=== PATIENT | male | born 1990 | race Caucasian/White ===

== ENCOUNTER 2017-04-07 18:11 | Inpatient (IN) | payer OTHER ==
[2017-04-07] MEDS ORDERED: ONDANSETRON 4 MG/2 ML VIAL IVP STA ×2 (18:49→20:34)
[2017-04-07] MEDS ORDERED: SODIUM CHLORIDE 0.9% 1,000 ML IV STA ×2 (18:49→20:34)
[2017-04-07] MEDS ORDERED: SODIUM CHLORIDE 0.9% 500 ML IV STA ×2 (18:49→20:34)
[2017-04-07] MEDS ORDERED: KETOROLAC 30 MG/ML 1 ML VIAL IVP STA (18:49)
[2017-04-07] MEDS ORDERED: ACETAMINOPHEN TAB 325 MG TAB PO STA (18:51)
--- NOTE | 2017-04-07 18:54 | ED ---
Nausea/Vomiting/Diarrhea HPI - General Chief complaint: Nausea/Vomiting/Diarrhea Stated complaint: Vomiting Time Seen by Provider: 04/07/17 18:46 Source: patient Mode of arrival: ambulatory Limitations: no limitations - History of Present Illness Initial comments: 26-year-old male patient presented to the emergency department today with complaints of generalized bodyaches and vomiting. The patient states that symptoms started last evening around 8 PM. States he has vomited multiple times throughout the day today. He denies any hematemesis. Denies any diarrhea , hematochezia, or melena. He denies any known fever or chills however is febrile during triage. He denies any upper respiratory symptoms. Denies any abdominal pain. Patient denies any recent rash, shortness breath, chest pain, back pain, numbness, tingling, dizziness, weakness, hematuria, dysuria, urinary urgency, urinary frequency, headache, visual changes, or any other complaints. Denies any drug or alcohol use. - Related Data Previous Rx's Medication Instructions Recorded Ibuprofen [Motrin] 800 mg PO Q4-6H #30 tab 03/18/17 traMADol HCL [Ultram] 50 mg PO Q6HR #7 tab 03/18/17 Allergies Allergy/AdvReac Type Severity Reaction Status Date / Time No Known Allergies Allergy Verified 04/07/17 18:52 Review of Systems ROS Statement: Those systems with pertinent positive or pertinent negative responses have been documented in the HPI. ROS Other: All systems not noted in ROS Statement are negative. Past Medical History Past Medical History: Seizure Disorder Additional Past Medical History / Comment(s): RT/LT ANT SUPERIOR ILIAC WOUNDS, AND" REDNESS/BUMPS TO ABD". BRONCHITIS, CYSTS ON TESTICAL History of Any Multi-Drug Resistant Organisms: MRSA Date of last positivie culture/infection: 07/29/15 MDRO Source:: Abdomen Past Surgical History: No Surgical Hx Reported Additional Past Surgical History / Comment(s): I&d abd abcess Past Anesthesia/Blood Transfusion Reactions: No Reported Reaction Past Psychological History: ADD/ADHD Smoking Status: Current every day smoker Past Alcohol Use History: Occasional Past Drug Use History: Marijuana - Past Family History Father History Unknown: Yes Mother History Unknown: Yes General Exam Limitations: no limitations General appearance: alert, in no apparent distress, other (Physical well- developed, well-nourished adult male patient in no acute distress. Vital signs upon presentation are temperature 100.4F, pulse 93, respirations 20, blood pressure 135/90, pulse ox 99% on room air.) Eye exam: Present: normal appearance, PERRL, EOMI. Absent: scleral icterus, conjunctival injection, periorbital swelling ENT exam: Present: normal exam, normal oropharynx, mucous membranes moist Neck exam: Present: normal inspection. Absent: tenderness, meningismus, lymphadenopathy Respiratory exam: Present: normal lung sounds bilaterally. Absent: respiratory distress, wheezes, rales, rhonchi, stridor Cardiovascular Exam: Present: regular rate, normal rhythm, normal heart sounds. Absent: systolic murmur, diastolic murmur, rubs, gallop, clicks GI/Abdominal exam: Present: soft, normal bowel sounds. Absent: distended, tenderness, guarding, rebound, rigid Neurological exam: Present: alert, oriented X3, CN II-XII intact Psychiatric exam: Present: normal affect, normal mood Skin exam: Present: warm, dry, intact, normal color. Absent: rash Course Vital Signs 04/07/17 18:12 Temperature 100.4 F H Pulse Rate 93 Respiratory 20 Rate Blood Pressure 135/90 O2 Sat by Pulse 99 Oximetry Medical Decision Making - Medical Decision Making 26-year-old male patient presents to the emergency department for a 1 day history of vomiting and abdominal discomfort. Physical examination is unremarkable. Abdomen is nontender. Labs are were reviewed and did show a sodium of 135, bilirubin of 4.0, AST of 4818, ALT of 4021, alk phos of 133. Urine was dark brown in color, results showed 1+ urine protein, 1+ bilirubin, rare amorphous sediment, and rare urine mucus. Will be admitted to the hospital for acute hepatitis. Acute hepatitis panel, PT INR, PTT, and a urine drug screen have been added. We will obtain ultrasound. He'll be admitted to Dr. Moncada's service. IV fluids and nausea medication has been provided. Patient has been notified of results and agrees with this plan. - Lab Data Result diagrams: 04/07/17 19:30 04/07/17 19:30 Lab Results 04/07/17 04/07/17 04/07/17 Range/Units 19:30 19:30 19:30 WBC 4.1 (3.8-10.6) k/uL RBC 4.66 (4.30-5.90) m/uL Hgb 14.4 (13.0-17.5) gm/dL Hct 43.1 (39.0-53.0) % MCV 92.6 (80.0-100.0) fL MCH 30.9 (25.0-35.0) pg MCHC 33.4 (31.0-37.0) g/dL RDW 14.5 (11.5-15.5) % Plt Count 170 (150-450) k/uL Neutrophils % 65 % Lymphocytes % 15 % Monocytes % 8 % Eosinophils % 1 % Basophils % 3 % Neutrophils # 2.7 (1.3-7.7) k/uL Lymphocytes # 0.6 L (1.0-4.8) k/uL Monocytes # 0.3 (0-1.0) k/uL Eosinophils # 0.0 (0-0.7) k/uL Basophils # 0.1 (0-0.2) k/uL Sodium 135 L (137-145) mmol/L Potassium 3.8 (3.5-5.1) mmol/L Chloride 97 L (98-107) mmol/L Carbon Dioxide 28 (22-30) mmol/L Anion Gap 10 mmol/L BUN 14 (9-20) mg/dL Creatinine 0.89 (0.66-1.25) mg/dL Est GFR (MDRD) Af Amer >60 (>60 ml/min/1.73 sqM) Est GFR (MDRD) Non-Af >60 (>60 ml/min/1.73 sqM) Glucose 90 (74-99) mg/dL Calcium 8.5 (8.4-10.2) mg/dL Total Bilirubin 4.0 H (0.2-1.3) mg/dL AST 4818 H (17-59) U/L ALT 4021 H (21-72) U/L Alkaline Phosphatase 133 H (38-126) U/L Total Protein 6.8 (6.3-8.2) g/dL Albumin 4.0 (3.5-5.0) g/dL Amylase 60 (30-110) U/L Lipase 75 (23-300) U/L Urine Color Dark Yellow Urine Appearance Clear (Clear) Urine pH 7.0 (5.0-8.0) Ur Specific [place] 1.022 (1.001-1.035) Urine Protein 1+ H (Negative) Urine Glucose (UA) Negative (Negative) Urine Ketones Negative (Negative) Urine Blood Negative (Negative) Urine Nitrite Negative (Negative) Urine Bilirubin 1+ H (Negative) Urine Urobilinogen >12.0 (<2.0) mg/dL Ur Leukocyte Esterase Negative (Negative) Urine RBC <1 (0-5) /hpf Urine WBC 2 (0-5) /hpf Ur Squamous Epith Cells <1 (0-4) /hpf Amorphous Sediment Rare H (None) /hpf Urine Mucus Rare H (None) /hpf Disposition Clinical Impression: Acute hepatitis Disposition: ADMITTED IP TO THIS [facility] Condition: Serious Referrals: None,Stated [Primary Care Provider] - 1-2 days Decision to Admit Reason: Admit from EC Decision Date: 04/07/17 Decision Time: 20:33
[2017-04-07 19:52] LABS: Alkaline Phosphatase 133 U/L (38-126); Amylase 60 U/L (30-110); Anion Gap 10 mmol/L; Blood Urea Nitrogen 14 mg/dL (9-20); Calcium 8.5 mg/dL (8.4-10.2); Carbon Dioxide 28 mmol/L (22-30); Chloride 97 mmol/L (98-107); Glucose 90 mg/dL (74-99); Lipase 75 U/L (23-300); Potassium 3.8 mmol/L (3.5-5.1); Sodium 135 mmol/L (137-145); Total Protein 6.8 g/dL (6.3-8.2)
[2017-04-07 19:53] LABS: Amorphous Sediment,Urine Rare /hpf; Appearance,Urine Clear (Clear); Bilirubin,Urine 1+ (Negative); Blood,Urine Negative (Negative); Color,Urine Dark Yellow; Glucose,Urine (UA) Negative (Negative); Ketones,Urine Negative (Negative); Leukocyte Esterase,Urine Negative (Negative); Mucus,Urine Rare /hpf; Nitrite,Urine Negative (Negative); Protein,Urine 1+ (Negative); RBC,Urine <1 /hpf (0-5); Specific Gravity,Urine 1.022 (1.001-1.035); Squamous Epithelial Cell,Urine <1 /hpf (0-4); Urobilinogen,Urine >12.0 mg/dL (<2.0); WBC,Urine 2 /hpf (0-5)
[2017-04-07 19:55] LABS: Basophils # (A) 0.1 k/uL (0-0.2); Basophils % (A) 3 %; Eosinophils % (A) 1 %; HCT 43.1 % (39.0-53.0); HGB 14.4 gm/dL (13.0-17.5); Lymphocytes # (A) 0.6 k/uL (1.0-4.8); Lymphocytes % (A) 15 %; MCH 30.9 pg (25.0-35.0); MCHC 33.4 g/dL (31.0-37.0); MCV 92.6 fL (80.0-100.0); Monocytes # (A) 0.3 k/uL (0-1.0); Monocytes % (A) 8 %; Neutrophils # (A) 2.7 k/uL (1.3-7.7); Neutrophils % (A) 65 %; Platelet Count 170 k/uL (150-450); RBC 4.66 m/uL (4.30-5.90); RDW 14.5 % (11.5-15.5); WBC 4.1 k/uL (3.8-10.6)
[2017-04-07 20:17] LABS: ALT 4021 U/L (21-72)
[2017-04-07] MEDS ORDERED: NALOXONE 0.4 MG/ML 1 ML VIAL IV PRN (20:30)
[2017-04-07 20:32] LABS: AST 4818 U/L (17-59)
[2017-04-07] MEDS: SODIUM CHLORIDE 0.9% 1,000 ML IV SCH (20:58)
[2017-04-07 21:34] LABS: INR 1.3 (<1.2); Partial Thromboplastin Time 27.7 sec (22.0-30.0); Prothrombin Time 12.6 sec (9.0-12.0)
--- NOTE | 2017-04-07 21:39 | US ---
EXAMINATION TYPE: US abdomen limited DATE OF EXAM: 04/07/2017 COMPARISON: NONE CLINICAL HISTORY: Acute Hepatitis. Patient moving and moaning during exam. Would not take deep breath in and hold, would not roll onto side. EXAM MEASUREMENTS: Liver Length: 19.7 cm Gallbladder Wall: 0.6 cm CBD: 0.3 cm Right Kidney: 14.5 x 4.8 x 5.8 cm Pancreas: Obscured by bowel gas Liver: Enlarged, dilated ducts, portal vein appears enlarged measuring 1.4 cm in diameter. Gallbladder: Thickened, edematous wall, Sludge visualized within lumen of the gallbladder. No perich olecystic fluid is seen. Evidence for sonographic Mckeon's sign: No CBD: wnl Right Kidney: Measuring large, no hydronephrosis, no cystic or solid mass visualized. IMPRESSION: 1. Liver has an abnormal hyperechoic appearance which is probably due to hepatocellular disease given patient's history of hepatitis. There is also intrahepatic biliary ductal dilatation and slight enla rgement of the portal vein. 2. Gallbladder wall thickening is identified as well as multiple echogenic foci within the lumen of t he gallbladder. Findings are felt to be due to sludge. The common duct is not dilated. Acute cholecys titis is suspected given the findings. If there remains clinical concern for acute cholecystitis HIDA scan could be obtained.
[2017-04-07 21:47] LABS: Amphetamine Screen,Urine Detected (NotDetected); Barbiturate Screen,Urine Not Detected (NotDetected); Benzodiazepines Screen,Urine Not Detected (NotDetected); Cocaine Screen,Urine Not Detected (NotDetected); Methadone Screen, Urine Not Detected (NotDetected); Opiate Screen,Urine Not Detected (NotDetected); Oxycodone Screen, Urine Not Detected (NotDetected); Phencyclidine Screen,Urine Not Detected (NotDetected); Tricyclic Antidepressant,Urine Not Detected (NotDetected); Urn Cannabinoid Scrn Detected (NotDetected)
[2017-04-08] MEDS: SODIUM CHLORIDE 0.9% 1,000 ML IV SCH ×2 (06:13→15:03)
[2017-04-08] MEDS: HYDROmorphone 0.5 MG/0.5 ML SYRINGE IVP PRN ×4 (09:01→21:51)
--- NOTE | 2017-04-08 11:55 | P.GSCN ---
History of Present Illness Consult date: 04/08/17 Reason for Consult: Elevated liver enzymes History of present illness: 26-year-old male comes in the hospital complaining of generalized body aches. He also complains of a headache. Some nausea and vomiting at times. Mild abdominal discomfort. No history of known liver problems. No history of gallstones. Denies alcohol use. He was found have significant liver enzyme elevation. No sick contacts. No hepatitis. The patient has had innumerable tattoos. GI is already seen this patient. Hepatitis workup is pending. Ultrasound of the liver showed sludge with a thickened gallbladder wall. Common bile duct is normal however dictation suggests intrahepatic biliary dilation. Review of Systems The patient denies any acute changes in vision or hearing, no dysphagia or odynophagia, no chest pain or shortness of breath, no dysuria or hematuria, no headache, no runny nose, no rectal bleeding or melena, no unexplained weight loss Past Medical History Past Medical History: Seizure Disorder Additional Past Medical History / Comment(s): RT/LT ANT SUPERIOR ILIAC WOUNDS, AND" REDNESS/BUMPS TO ABD". BRONCHITIS, CYSTS ON TESTICAL History of Any Multi-Drug Resistant Organisms: MRSA Year Discovered:: 07/29/15 MDRO Source:: Abdomen Past Surgical History: No Surgical Hx Reported Additional Past Surgical History / Comment(s): I&d abd abcess Past Anesthesia/Blood Transfusion Reactions: No Reported Reaction Past Psychological History: ADD/ADHD Smoking Status: Current every day smoker Past Alcohol Use History: Occasional Additional Past Alcohol Use History / Comment(s): started smoking at age 11 smokes 1 ppd Past Drug Use History: Marijuana - Past Family History Father History Unknown: Yes Mother History Unknown: Yes Medications and Allergies Home Medications Medication Instructions Recorded Confirmed Type Ibuprofen [Motrin] 800 mg PO Q4-6H #30 tab 03/18/17 04/07/17 Rx traMADol HCL [Ultram] 50 mg PO Q6HR #7 tab 03/18/17 04/07/17 Rx Allergies Allergy/AdvReac Type Severity Reaction Status Date / Time No Known Allergies Allergy Verified 04/07/17 18:52 Surgical - Exam Vital Signs Temp Pulse Resp BP Pulse Ox 100.4 F H 93 20 135/90 99 04/07/17 18:12 04/07/17 18:12 04/07/17 18:12 04/07/17 18:12 04/07/17 18:12 Physical exam: General: Well-developed, well-nourished HEENT: Normocephalic, sclerae nonicteric Abdomen: Mild epigastric tenderness, nondistended Extremities: No edema Neuro: Alert and oriented Results - Labs 04/07/17 19:30 04/07/17 19:30 Abnormal Lab Results - Last 24 Hours (Table) 04/07/17 04/07/17 04/07/17 Range/Units 19:30 19:30 19:30 Lymphocytes # 0.6 L (1.0-4.8) k/uL PT (9.0-12.0) sec INR (<1.2) Sodium 135 L (137-145) mmol/L Chloride 97 L (98-107) mmol/L Total Bilirubin 4.0 H (0.2-1.3) mg/dL AST 4818 H (17-59) U/L ALT 4021 H (21-72) U/L Alkaline Phosphatase 133 H (38-126) U/L Urine Protein 1+ H (Negative) Urine Bilirubin 1+ H (Negative) Amorphous Sediment Rare H (None) /hpf Urine Mucus Rare H (None) /hpf Ur Amphetamines Screen (NotDetected) U Methamphetamines Scrn (NotDetected) U Marijuana (THC) Screen (NotDetected) 04/07/17 04/07/17 Range/Units 19:30 19:30 Lymphocytes # (1.0-4.8) k/uL PT 12.6 H (9.0-12.0) sec INR 1.3 H (<1.2) Sodium (137-145) mmol/L Chloride (98-107) mmol/L Total Bilirubin (0.2-1.3) mg/dL AST (17-59) U/L ALT (21-72) U/L Alkaline Phosphatase (38-126) U/L Urine Protein (Negative) Urine Bilirubin (Negative) Amorphous Sediment (None) /hpf Urine Mucus (None) /hpf Ur Amphetamines Screen Detected H (NotDetected) U Methamphetamines Scrn Detected H (NotDetected) U Marijuana (THC) Screen Detected H (NotDetected) Diabetes panel 04/07/17 Range/Units 19:30 Sodium 135 L (137-145) mmol/L Potassium 3.8 (3.5-5.1) mmol/L Chloride 97 L (98-107) mmol/L Carbon Dioxide 28 (22-30) mmol/L BUN 14 (9-20) mg/dL Creatinine 0.89 (0.66-1.25) mg/dL Glucose 90 (74-99) mg/dL Calcium 8.5 (8.4-10.2) mg/dL AST 4818 H (17-59) U/L ALT 4021 H (21-72) U/L Alkaline Phosphatase 133 H (38-126) U/L Total Protein 6.8 (6.3-8.2) g/dL Albumin 4.0 (3.5-5.0) g/dL Calcium panel 04/07/17 Range/Units 19:30 Calcium 8.5 (8.4-10.2) mg/dL Albumin 4.0 (3.5-5.0) g/dL Pituitary panel 04/07/17 Range/Units 19:30 Sodium 135 L (137-145) mmol/L Potassium 3.8 (3.5-5.1) mmol/L Chloride 97 L (98-107) mmol/L Carbon Dioxide 28 (22-30) mmol/L BUN 14 (9-20) mg/dL Creatinine 0.89 (0.66-1.25) mg/dL Glucose 90 (74-99) mg/dL Calcium 8.5 (8.4-10.2) mg/dL Adrenal panel 04/07/17 Range/Units 19:30 Sodium 135 L (137-145) mmol/L Potassium 3.8 (3.5-5.1) mmol/L Chloride 97 L (98-107) mmol/L Carbon Dioxide 28 (22-30) mmol/L BUN 14 (9-20) mg/dL Creatinine 0.89 (0.66-1.25) mg/dL Glucose 90 (74-99) mg/dL Calcium 8.5 (8.4-10.2) mg/dL Total Bilirubin 4.0 H (0.2-1.3) mg/dL AST 4818 H (17-59) U/L ALT 4021 H (21-72) U/L Alkaline Phosphatase 133 H (38-126) U/L Total Protein 6.8 (6.3-8.2) g/dL Albumin 4.0 (3.5-5.0) g/dL Assessment and Plan (1) Acute hepatitis Narrative/Plan: Ultrasound of the gallbladder does reveal sludge. Choledocholithiasis remains a possibility although the degree of enzyme elevation is much greater than would be expected in his symptoms are extremely mild as it pertains to the abdomen. Continue hepatitis workup. We'll repeat lab work tomorrow. Current Visit: Yes Status: Acute Code(s): B17.9 - ACUTE VIRAL HEPATITIS, UNSPECIFIED SNOMED Code(s): 36365867
[2017-04-08 12:03] LABS: HCT 42.5 % (39.0-53.0); HGB 14.1 gm/dL (13.0-17.5); MCH 30.9 pg (25.0-35.0); MCHC 33.1 g/dL (31.0-37.0); MCV 93.4 fL (80.0-100.0); Mean Platelet Volume 7.8; Platelet Count 166 k/uL (150-450); RBC 4.55 m/uL (4.30-5.90); RDW 12.9 % (11.5-15.5); WBC 3.4 k/uL (3.8-10.6)
[2017-04-08 12:13] LABS: Albumin 3.4 g/dL (3.5-5.0); Alkaline Phosphatase 118 U/L (38-126); Anion Gap 6 mmol/L; Blood Urea Nitrogen 11 mg/dL (9-20); Calcium 8.1 mg/dL (8.4-10.2); Carbon Dioxide 30 mmol/L (22-30); Chloride 102 mmol/L (98-107); Glucose 84 mg/dL (74-99); Sodium 138 mmol/L (137-145); Total Bilirubin 4.5 mg/dL (0.2-1.3); Total Protein 6.1 g/dL (6.3-8.2)
[2017-04-08 12:37] LABS: Band Neutrophils % 9 %; Eosinophils # (M) 0.14 k/uL (0-0.7); Lymphocytes # (M) 1.53 k/uL (1.0-4.8); Monocytes # (M) 0.37 k/uL (0-1.0); Neutrophils % (M) 31 %; Nucleated Red Blood Cells 0 /100 WBC (0-0); Total Cells Counted 100
--- NOTE | 2017-04-08 12:37 | CONS ---
CONSULTATION DATE OF SERVICE: April 08, 2017. REQUESTING PHYSICIAN: Dr. Tan Moncada. REASON FOR CONSULTATION: Acute hepatitis. HISTORY OF PRESENT ILLNESS: The patient is a 26-year-old white male, came into the emergency room complaining of generalized abdominal pain, nausea, vomiting, not feeling well for the last 3 days duration. He started having some epigastric and right upper quadrant abdominal pain that started yesterday evening. Had multiple episodes of nausea, vomiting, came into the emergency room and subsequently noted to have acute elevation of ALT and AST in the range of 4000 and admitted to the hospital with acute hepatitis. The patient denies any fever, chills, or night sweats. No history of liver problems in the past. Denies any alcohol use. He has been smoking pot and abusing methamphetamines. He denies any intravenous drug use. He denies any recent antibiotic use. PAST MEDICAL HISTORY: Anxiety, history of seizure disorder. PAST SURGICAL HISTORY: Incision and drainage for an abdominal abscess. SOCIAL HISTORY: Chronic smoker, history of remote history of alcohol use but has not been drinking for several years. FAMILY HISTORY: Unremarkable. MEDICATIONS: Medications at home none. REVIEW OF SYSTEMS: Cardiopulmonary: No chest pain, shortness of breath. Genitourinary: No dysuria or hematuria. Musculoskeletal unremarkable. Skin unremarkable. Endocrine unremarkable. Psychiatric unremarkable. Neurology unremarkable. ENT vision unremarkable. Constitutional: No recent weight loss. No fever, chills, night sweats. PHYSICAL EXAMINATION: Temperature 100, blood pressure 119/60, pulse rate 75. HEENT: Examination unremarkable. Conjunctivae pink. Sclerae anicteric. Oral cavity no lesions. Neck: No jugular venous distention or lymph node enlargement. Chest was clear to auscultation. HEART: Regular rate and rhythm. ABDOMEN: Soft. Bowel sounds are positive. Mild tenderness in the epigastric area. Liver and spleen not palpable. Extremities no pedal edema. Skin: Multiple tattoos throughout the body. NEUROLOGIC: Alert and oriented x3. No focal deficits. LABS: From yesterday, T bilirubin 4, AST 4818, ALT 4021, alkaline phosphatase 133. INR is 1.3. CBC is within normal limits. Urine methamphetamines and marijuana detected. IMPRESSION: 1. This is a patient with history of generalized body aches for the last 3 days duration, presents with nausea, vomiting, abdominal pain and noted to have acute elevation of ALT and AST in the range of 4000, consistent with acute hepatitis, most likely we are dealing with acute viral hepatitis. He denies taking any over- the-counter medications or antibiotics recently. 2. History of anxiety. RECOMMENDATIONS: 1. We will obtain acute hepatitis viral serologies today. 2. Repeat labs in the morning. 3. Reviewed ultrasound results with the patient. 4. Clear liquid diet and advance as tolerated. 5. Follow him closely during his hospital stay. Thank you for this consultation. MMALDENL / IJN: [id number] /
[2017-04-08 12:38] LABS: Poikilocytosis (M) Present
[2017-04-08 12:46] LABS: ALT 3480 U/L (21-72); AST 3428 U/L (17-59)
--- NOTE | 2017-04-08 16:49 | HP ---
HISTORY AND PHYSICAL CHIEF COMPLAINT: A 26-year-old white male with generalized abdominal pain, right upper quadrant abdominal pain, nausea and vomiting. He denies any alcohol. He was found to have severely elevated liver enzymes. Ultrasound of liver shows some cholecystitis. Surgical consult and GI consult are pending. Ultrasounds were reviewed. REVIEW OF SYSTEMS: Fourteen point review of systems negative except for HPI. PAST MEDICAL HISTORY: Seizure disorder, multiple tattoos over his entire body, , ADD, current everyday smoker. FAMILY HISTORY: Father unknown. Mother unknown. HOME MEDICATIONS: Ibuprofen, tramadol. ALLERGIES: Negative. LABORATORY DATA: Sodium 135, potassium 3.9, hemoglobin 14.4. AST is 4818, ALT 4821. Urine drug screen positive for amphetamines, methamphetamines, and marijuana. ASSESSMENT: 1. Acute hepatitis of unclear etiology. 2. Possible choledocholithiasis and cholecystitis. Surgery and GI consults are pending. Please see further orders in chart. MMODL / IJN: [id number] /
[2017-04-09] MEDS: SODIUM CHLORIDE 0.9% 1,000 ML IV SCH ×4 (03:08→18:58)
[2017-04-09] MEDS: HYDROmorphone 0.5 MG/0.5 ML SYRINGE IVP PRN ×4 (06:15→18:59)
[2017-04-09 08:54] LABS: Alkaline Phosphatase 114 U/L (38-126); Anion Gap 5 mmol/L; Blood Urea Nitrogen 5 mg/dL (9-20); Carbon Dioxide 31 mmol/L (22-30); Chloride 103 mmol/L (98-107); Glucose 89 mg/dL (74-99); Potassium 4.4 mmol/L (3.5-5.1); Sodium 139 mmol/L (137-145); Total Bilirubin 4.3 mg/dL (0.2-1.3); Total Protein 5.7 g/dL (6.3-8.2)
[2017-04-09 09:43] LABS: ALT 2589 U/L (21-72); AST 1755 U/L (17-59)
--- NOTE | 2017-04-09 15:13 | P.PN ---
Subjective Progress Note Date: 04/09/17 26-year-old male seen and examined. Patients being followed by GI service. Patient continues to report having generalized body aches. Asking for diet to be advanced improvement in the nausea no vomiting. Hepatitis workup is in progress. The ultrasound of the liver shows sludge with thickening of the gallbladder wall, bile duct normal. Objective - Vital Signs Vital signs: Vital Signs Temp 96.5 F L 04/09/17 15:00 Pulse 60 04/09/17 15:00 Resp 18 04/09/17 15:00 BP 115/67 04/09/17 15:00 Pulse Ox 96 04/09/17 15:00 Intake & Output 04/08/17 04/09/17 04/09/17 18:59 06:59 18:59 Intake Total 1300 Output Total 1200 Balance 100 Weight 90.718 kg Intake: Intake, IV Titration 700 Amount Sodium Chloride 0.9% 1, 700 000 ml @ 100 mls/hr IV . Q10H [facility] Rx#:[id number] Oral 600 Output: Urine 1200 Other: Voiding Method Toilet Toilet Urinal # Voids 2 2 2 - Exam Physical exam 26-year-old male resting in bed with multiple skin tattoos states is new is tattoo was applied April 04 Lungs adequate air movement bilaterally Heart S1-S2 audible regular Abdomen flat slight midepigastric tenderness nondistended Extremities no edema - Labs CBC & Chem 7: 04/08/17 11:42 04/09/17 08:02 Labs: Abnormal Lab Results - Last 24 Hours (Table) 04/09/17 Range/Units 08:02 Carbon Dioxide 31 H (22-30) mmol/L BUN 5 L (9-20) mg/dL Calcium 8.0 L (8.4-10.2) mg/dL Total Bilirubin 4.3 H (0.2-1.3) mg/dL AST 1755 H (17-59) U/L ALT 2589 H (21-72) U/L Total Protein 5.7 L (6.3-8.2) g/dL Albumin 3.0 L (3.5-5.0) g/dL Assessment and Plan Assessment: Impression Acute elevation of ALT AST possibly due to Acute hepatitis Ultrasound gallbladder shows sludge with cholelithiasis the possibility Drug screen positive for marijuana and meth amphetamines Anxiety depressive disorder Plan Await hepatitis panel pending Continue recommendations by GI service Further surgical recommendations pending will follow Clear liquid diet advance as tolerated The above impression and plan of care have been discussed and directed by signing physician. Duyen Redd nurse practitioner acting as scribe for signing physician.
[2017-04-09 16:11] LABS: Hepatitis A Antibody IgM Reactive (Non-Reactive); Hepatitis B Core IgM Non-Reactive (Non-Reactive)
--- NOTE | 2017-04-09 18:50 | PN ---
PROGRESS NOTE DATE OF SERVICE: 04/09/17 The patient is a 26 -year-old pleasant white male admitted to the hospital with acute hepatitis. He presents with nausea, vomiting, fever, chills, myalgias, arthralgias for the last 1 week duration and was noted to have jaundice for the last 5 days. His initial labs showed elevated ALT and AST in the range of 4000. He did have hepatitis serologies for A, B, and C and hepatitis C IgM was reported as positive this afternoon. The patient is feeling better today. No abdominal pain. No nausea, vomiting. PHYSICAL EXAMINATION: Appears comfortable, no apparent distress. VITAL SIGNS: Stable. Blood pressure is 106/55, pulse rate 53, temperature 97.5. HEENT Examination unremarkable. Conjunctivae pink. Sclerae anicteric. Oral cavity no lesions. Neck: No jugular venous distention or lymph node enlargement. Chest was clear to auscultation. HEART: Regular rate and rhythm. ABDOMEN: Soft. Bowel sounds are positive. Mild tenderness in the epigastric area. Extremities: No pedal edema. Skin no rashes. NEUROLOGIC: Alert and oriented x3. No focal deficits. LABS: From today: Hepatitis A IgM is positive. WBC 3.4, hemoglobin 14.1, platelets 166. AST is down to 1755, ALT is down to 2588, T bilirubin is 4.3. IMPRESSION: Acute hepatitis A infection. RECOMMENDATIONS: I had a lengthy discussion with the patient regarding acute hepatitis A infection, mode of transmission and full natural course of the disease. At this time, his serum transaminases are improving and they told him that there is a very good chance of complete recovery with acute hepatitis A infection in the next 3-4 weeks. Since his serum transaminases are improving, the patient will be discharged home tomorrow morning with outpatient follow up in a week. His close contacts including girlfriend as well as his mother were advised to take hepatitis A immunization at this time. Thank you for this consultation. MMALDENL / CHARLESN: [id number] /
[2017-04-09] MEDS: ONDANSETRON 4 MG/2 ML VIAL IVP PRN (19:02)
--- NOTE | 2017-04-10 04:47 | PN ---
PROGRESS NOTE SUBJECTIVE: A 26-year-old white male with hepatitis A acute awaiting Infectious Disease consultation. Liver enzymes were down by 1000 points from yesterday. Diet will be advanced. CARDIOVASCULAR: S1, S2. LUNGS: Clear. GI: Increased bowel sounds. HEMATOLOGIC: Negative Homans. ASSESSMENT: Acute hepatitis, hepatitis A positive. Fluid rehydration, Infectious Disease consultation. MMODL / IJN: [id number] /
[2017-04-10 07:36] VITALS: RESP 16
[2017-04-10] MEDS: SODIUM CHLORIDE 0.9% 1,000 ML IV SCH ×2 (08:00→16:30)
[2017-04-10 08:29] LABS: Albumin 3.2 g/dL (3.5-5.0); Alkaline Phosphatase 154 U/L (38-126); Anion Gap 7 mmol/L; Blood Urea Nitrogen 6 mg/dL (9-20); Calcium 8.4 mg/dL (8.4-10.2); Carbon Dioxide 26 mmol/L (22-30); Chloride 105 mmol/L (98-107); Glucose 94 mg/dL (74-99); Potassium 4.6 mmol/L (3.5-5.1); Sodium 138 mmol/L (137-145); Total Bilirubin 4.9 mg/dL (0.2-1.3); Total Protein 6.3 g/dL (6.3-8.2)
[2017-04-10 08:33] LABS: Basophils # (A) 0.1 k/uL (0-0.2); Basophils % (A) 2 %; Eosinophils # (A) 0.1 k/uL (0-0.7); Eosinophils % (A) 3 %; HCT 43.6 % (39.0-53.0); HGB 14.4 gm/dL (13.0-17.5); Lymphocytes # (A) 1.2 k/uL (1.0-4.8); Lymphocytes % (A) 28 %; MCH 31.6 pg (25.0-35.0); MCV 95.7 fL (80.0-100.0); Mean Platelet Volume 8.1; Monocytes # (A) 0.2 k/uL (0-1.0); Monocytes % (A) 6 %; Neutrophils # (A) 2.5 k/uL (1.3-7.7); Neutrophils % (A) 58 %; Platelet Count 170 k/uL (150-450); RBC 4.55 m/uL (4.30-5.90); RDW 13.1 % (11.5-15.5); WBC 4.2 k/uL (3.8-10.6)
[2017-04-10 08:46] LABS: ALT 1973 U/L (21-72); AST 1212 U/L (17-59)
[2017-04-10] MEDS: HYDROmorphone 0.5 MG/0.5 ML SYRINGE IVP PRN ×2 (09:15→19:05)
--- NOTE | 2017-04-10 12:18 | P.PN ---
Subjective Progress Note Date: 04/10/17 26-year-old seen and examined resting in bed had just received IV dilaudid for generalized body aches. Labs reviewed hepatitis A positive. total bilirubin 4.9. AST 1212, ALT 1973 alk phos up 154 being followed by surgical service for an ultrasound of the liver which showed sludge with thickening of the gallbladder common bile duct normal Objective - Vital Signs Vital signs: Vital Signs Temp 97.6 F 04/10/17 07:00 Pulse 91 04/10/17 07:00 Resp 16 04/10/17 07:00 BP 127/68 04/10/17 07:00 Pulse Ox 99 04/10/17 07:00 Intake & Output 04/09/17 04/10/17 04/10/17 18:59 06:59 18:59 Intake Total 1300 800 240 Output Total 4200 2050 Balance -2900 -1250 240 Weight 90.718 kg Intake: Intake, IV Titration 700 800 Amount Sodium Chloride 0.9% 1, 700 800 000 ml @ 100 mls/hr IV . Q10H [facility] Rx#:[id number] Oral 600 240 Output: Urine 4200 2050 Other: Voiding Method Toilet Toilet Urinal Urinal # Voids 1 2 - Exam Physical exam 26-year-old male resting in bed with multiple skin tattoos states new tattoo was applied April 04 Lungs adequate air movement bilaterally Heart S1-S2 audible regular Abdomen flat slight midepigastric tenderness nondistended Extremities no edema - Labs CBC & Chem 7: 04/10/17 07:29 04/10/17 07:29 Labs: Abnormal Lab Results - Last 24 Hours (Table) 04/07/17 04/10/17 Range/Units 19:30 07:29 BUN 6 L (9-20) mg/dL Total Bilirubin 4.9 H (0.2-1.3) mg/dL AST 1212 H (17-59) U/L ALT 1973 H (21-72) U/L Alkaline Phosphatase 154 H (38-126) U/L Albumin 3.2 L (3.5-5.0) g/dL Hepatitis A IgM Ab Reactive H (Non-Reactive) Assessment and Plan Assessment: Impression Acute elevation of ALT AST possibly due to Acute hepatitis Ultrasound gallbladder shows sludge with cholelithiasis the possibility Drug screen positive for marijuana and meth amphetamines Anxiety depressive disorder Hepatitis A IgM positive Acute hepatitis A infection Plan Pain control GIs recommendations were noted they indicate the patient could be discharged home outpatient follow-up in one week mother and girlfriend to take hepatitis A immunizations Surgically patient could be discharged home and followed up in the outpatient setting defer to the timing of the discharge to the attending Signoff re-eval if needed The above impression and plan of care have been discussed and directed by signing physician. Duyen Redd nurse practitioner acting as scribe for signing physician.
--- NOTE | 2017-04-10 14:54 | CONS ---
CONSULTATION DATE OF SERVICE: 04/10/2017 REASON FOR CONSULTATION: 1. Acute hepatitis. 2. Question of cholecystitis and need for antibiotic therapy. HISTORY OF PRESENT ILLNESS: The patient is a 26-year-old male who presented to the ER at [facility] on April 07, 2017 with chief complaints of nausea, vomiting and diarrhea. His symptoms started initially with a headache, then generalized body aches and the patient started having vomiting with multiple episodes. The patient complained from vague pain in the right upper quadrant area 1 week intensity 3-4 out of 10 and did have some diarrhea with the symptom not improving. He presented to the [facility] ER where the patient was evaluated by the ER physician. On evaluation on admission, the patient did have fever of 100.4, subsequent 101 degrees Fahrenheit. The patient has been afebrile since then. Patient did not receive an antibiotic during this admission. He was noticed to have significantly elevated liver enzymes with bilirubin of 4, AST of 4818, ALT of 4021, alkaline phosphatase was 133. His white count has been normal. The patient had acute hepatitis, he came back positive, B and C were negative. Urine drug screen was positive for methamphetamines and marijuana. The patient has been treated symptomatically. He also have an ultrasound of the liver and gallbladder area which was suspicious for possible cholecystitis for which the patient has been seen by Surgery and no surgical intervention has been recommended. I was asked to see the patient for further treatment with possible need for antibiotic therapy. As mentioned above, patient has been afebrile as of this morning. His symptoms of nausea, vomiting has improved significantly since he has been admitted to the hospital. Pain has improved. No further diarrhea. REVIEW OF SYSTEMS: CONSTITUTIONAL: Positive for weakness along with the fever. EYES: No complaint. ENT: No complaint. RESPIRATORY: No complaint. CARDIOVASCULAR: No complaint. GENITOURINARY: No complaint. GASTROINTESTINAL: As per HPI. MUSCULOSKELETAL: No complaint. INTEGUMENTARY: No complaint. PSYCHOLOGICAL: No complaint. ENDOCRINE: No complaint. NEUROLOGIC: No complaint. PAST MEDICAL HISTORY: Significant for seizure disorder, cyst of the testicle, previous history of MRSA infection. PAST SURGICAL HISTORY: I & D of the abdominal abscess. SOCIAL HISTORY: Patient is current everyday smoker. Occasionally drinks, did admit to marijuana use. FAMILY HISTORY: No pertinent findings noticed. ALLERGIES: No known drug allergies. MEDICATIONS: The patient is currently on Dilaudid, Narcan, Zofran, and IV fluid. PHYSICAL EXAMINATION: Blood pressure is 127/68 with a pulse of 91, temperature of 97.6. He is 99% on room air. General description is a middle-aged male lying in bed, in no distress. HEENT EXAMINATION: Scleral icterus is positive. Oral mucosa is moist. No pharyngeal erythema or thrush NECK: Trachea central, no thyromegaly. LUNGS: Unlabored breathing, clear to auscultation anteriorly. No wheeze or crackle. HEART: S1, S2. Regular rate and rhythm. No murmur ABDOMEN: Soft, very minimal tenderness right upper quadrant area on deep palpation. No guarding. No rigidity. EXTREMITIES: No edema of the feet. SKIN EXAMINATION: No rash or mass palpable. NEUROLOGICAL: Patient is awake, alert, oriented, mood and affect normal. LABS: Hemoglobin is 14.4, white count 4.2 with a BUN of 4 6, creatinine 0.70. Liver enzymes have improved with ALT down to 1973 from 4021. No cultures during this admission. DIAGNOSTIC IMPRESSION AND PLAN: Patient admitted to the hospital with acute nausea and vomiting, abdominal pain , likely secondary to acute hepatitis A. Clinically doubt acute cholecystitis. The patient's fever resolved without any antibiotic therapy and the patient showed clinical improvement as well. Hence, there is no need for any antibiotic therapy on discharge. PLAN: 1. Symptomatic treatment for his underlying acute hepatitis, seemed to be responding to the current therapy. 2. Hepatitis A vaccination has been recommended for hospital members and patient advised to get hepatitis B vaccine as well. 3. No need for systemic antibiotic therapy at this point. Thank you. Medical discussed with nurse practitioner for the primary team. MMODL / IJN: [id number] / TIFF
[2017-04-10] MEDS: ONDANSETRON 4 MG/2 ML VIAL IVP PRN (19:05)
[2017-04-11] MEDS: SODIUM CHLORIDE 0.9% 1,000 ML IV SCH ×2 (06:14→08:50)
[2017-04-11 07:58] VITALS: BP 117/66; PULSE 57; TEMP 97.2
[2017-04-11] MEDS: HYDROmorphone 0.5 MG/0.5 ML SYRINGE IVP PRN (13:05)
--- NOTE | 2017-04-11 14:40 | PN ---
PROGRESS NOTE DATE OF SERVICE: 04/11/2017 REASON FOR FOLLOW UP: Acute hepatitis A. INTERVAL HISTORY: The patient is afebrile. Has been feeling better. No further nausea or vomiting. He is able to keep his food down. Abdominal pain has improved. Did have a bowel movement and no diarrhea. PHYSICAL EXAMINATION: Blood pressure 117/66 with a pulse of 57, temperature 97.2, he is 98% on room air. General description is a middle-aged male lying in bed, in no distress. RESPIRATORY SYSTEM: Unlabored breathing,. clear to auscultation anteriorly. HEART: S1, S2. Regular rate and rhythm. ABDOMEN: Soft, no tenderness. LABS: No new lab has been obtained today. DIAGNOSTIC IMPRESSION AND PLAN: Patient with acute hepatitis A, should be treated symptomatically. Patient has been showing clinical response. He will be continued for now. No need for any specific antiviral antibiotics. Clinical suspicion for underlying cholecystitis. MMODL / IJN: [id number] /
--- NOTE | 2017-05-14 00:52 | DS ---
DISCHARGE SUMMARY DISCHARGE MEDICATIONS: 1. Tramadol 50 mg every 6 hours p.r.n. 2. Motrin 800 every 8 to 12 hours p.r.n. HISTORY: This patient was seen by a surgeon while in the hospital for elevated liver enzymes. He came in with body aches, possible intrabiliary duct obstruction and thickened gallbladder wall on ultrasound. The patient had a slightly low sodium at 135. The patient was diagnosed with acute hepatitis of unclear etiology, possible choledocholithiasis. This patient was seen by Infectious Disease for acute hepatitis A. The patient was stabilized with medications and rehydration and treated symptomatically. Outpatient gallbladder will be worked out as an outpatient. MMODL / IJN: [id number] /
== END 2017-04-11 14:38 | disposition home or self-care (01) | DRG 443 ==
LOC: EC 18:11 → 4MS4W 20:39
PROVIDERS: ADMIT Family Medicine; ATTEND Family Medicine
DX: B15.9 Hepatitis A without hepatic coma (principal); K81.9 Cholecystitis, unspecified; F17.200 Nicotine dependence, unspecified, uncomplicated; F90.9 Attention-deficit hyperactivity disorder, unspecified type; G40.909 Epilepsy, unspecified, not intractable, without status epilepticus; F41.9 Anxiety disorder, unspecified; F32.9 Major depressive disorder, single episode, unspecified; Z86.14 Personal history of Methicillin resistant Staphylococcus aureus infection
CPT/HCPCS: 36415; 76705; 80053; 80074; 80306; 81001; 82150; 83690; 85025; 85610; 85730; 87521; 96360; 99284

== ENCOUNTER 2017-05-11 14:59 | Emergency (ER) | payer OTHER ==
[2017-05-11 15:16] VITALS: BP 160/89; PULSE 78; RESP 18; TEMP 98.9
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
--- NOTE | 2017-05-11 15:47 | XR ---
EXAMINATION TYPE: XR mandible complete DATE OF EXAM: 05/11/2017 COMPARISON: NONE HISTORY: Pain woke up with right-sided jaw pain this morning, denies injury TECHNIQUE: Five-view mandible FINDINGS: Mandible is examined in 5 views. There is a fracture at the right angle of the jaw with carmelina e diastases of the fracture fragments. No additional fractures are evident. IMPRESSION: 1. Fracture just anterior to angle angle of the right mandible.
[2017-05-11] MEDS ORDERED: MORPHINE SULFATE 4 MG/ML SYRINGE IM STA (15:52)
[2017-05-11] MEDS ORDERED: MORPHINE SULFATE 4 MG/ML SYRINGE IVP ONE (16:44)
[2017-05-11] MEDS ORDERED: ONDANSETRON 4 MG/2 ML VIAL IVP STA (16:44)
[2017-05-11] MEDS ORDERED: KETOROLAC 30 MG/ML 1 ML VIAL IVP STA (16:45)
[2017-05-11 17:02] LABS: Basophils # (A) 0.1 k/uL (0-0.2); Basophils % (A) 0 %; Eosinophils # (A) 0.2 k/uL (0-0.7); Eosinophils % (A) 1 %; HCT 44.1 % (39.0-53.0); HGB 14.7 gm/dL (13.0-17.5); Lymphocytes # (A) 1.3 k/uL (1.0-4.8); Lymphocytes % (A) 6 %; MCHC 33.4 g/dL (31.0-37.0); MCV 92.9 fL (80.0-100.0); Mean Platelet Volume 6.8; Monocytes # (A) 0.9 k/uL (0-1.0); Monocytes % (A) 4 %; Neutrophils # (A) 18.6 k/uL (1.3-7.7); Neutrophils % (A) 88 %; Platelet Count 303 k/uL (150-450); RBC 4.74 m/uL (4.30-5.90); RDW 13.9 % (11.5-15.5); WBC 21.1 k/uL (3.8-10.6)
[2017-05-11 17:10] LABS: ALT 69 U/L (21-72); AST 57 U/L (17-59); Albumin 4.5 g/dL (3.5-5.0); Alkaline Phosphatase 120 U/L (38-126); Anion Gap 10 mmol/L; Blood Urea Nitrogen 13 mg/dL (9-20); Calcium 9.7 mg/dL (8.4-10.2); Carbon Dioxide 31 mmol/L (22-30); Chloride 101 mmol/L (98-107); Glucose 95 mg/dL (74-99); Potassium 4.6 mmol/L (3.5-5.1); Sodium 142 mmol/L (137-145); Total Bilirubin 0.8 mg/dL (0.2-1.3); Total Protein 7.9 g/dL (6.3-8.2)
== END 2017-05-11 17:45 | disposition short-term general hospital (02) ==
LOC: EC 14:59
DX: S02.609A Fracture of mandible, unspecified, initial encounter for closed fracture (principal); R45.1 Restlessness and agitation; R13.10 Dysphagia, unspecified; F17.200 Nicotine dependence, unspecified, uncomplicated; Z86.14 Personal history of Methicillin resistant Staphylococcus aureus infection; X58.XXXA Exposure to other specified factors, initial encounter; Y93.89 Activity, other specified
CPT/HCPCS: 36415; 80053; 85025; 70110; 99284; 96374; 96375 ×2; 96372; J2270; J2405; J1885

== ENCOUNTER 2018-06-27 22:40 | Emergency (ER) | payer OTHER ==
[2018-06-27 22:49] VITALS: BP 125/89; PULSE 72; RESP 18; TEMP 98.5
--- NOTE | 2018-06-27 23:17 | ED ---
Seizure HPI - General Chief Complaint: Seizure Stated Complaint: Seizure Time Seen by Provider: 06/27/18 22:45 Source: patient, police, EMS Mode of arrival: EMS Limitations: no limitations - History of Present Illness Initial Comments: 27-year-old male patient presents to the emergency department today for evaluation after having a seizure. Patient was in police custody, once the handcuffs were placed on the patient he then started to seize. Officers witnessing report that he had approximately 15-20 seconds of generalized body shaking. They deny any loss of bowel or bladder control. Denies any postictal period. Patient states he does have history of seizures. Did not take any medications currently. States that he has approximately one to 2 seizures per week. Patient states he currently feels well. Denies any headache, blurred vision, double vision. Denies any chest pain or shortness of breath. Denies any numbness or tingling to his extremities. Denies any recent illness, fever, or chills. Patient denies any recent rash, shortness breath, chest pain, abdominal pain, nausea, vomiting, diarrhea, constipation, back pain, numbness, tingling, hematuria, dysuria, urinary urgency, urinary frequency, or any other complaints. - Related Data Home Medications Medication Instructions Recorded Confirmed No Known Home Medications 05/11/17 06/27/18 Allergies Allergy/AdvReac Type Severity Reaction Status Date / Time No Known Allergies Allergy Verified 06/27/18 23:29 Review of Systems ROS Statement: Those systems with pertinent positive or pertinent negative responses have been documented in the HPI. ROS Other: All systems not noted in ROS Statement are negative. Past Medical History Past Medical History: Seizure Disorder Additional Past Medical History / Comment(s): RT/LT ANT SUPERIOR ILIAC WOUNDS,AND" REDNESS/BUMPS TO ABD". BRONCHITIS, CYSTS ON TESTICAL History of Any Multi-Drug Resistant Organisms: MRSA Date of last positivie culture/infection: 07/29/15 MDRO Source:: Abdomen Past Surgical History: No Surgical Hx Reported Additional Past Surgical History / Comment(s): I&d abd abcess Past Anesthesia/Blood Transfusion Reactions: No Reported Reaction Past Psychological History: ADD/ADHD Smoking Status: Current every day smoker Past Alcohol Use History: Occasional Past Drug Use History: Marijuana - Past Family History Father History Unknown: Yes Mother History Unknown: Yes General Exam Limitations: no limitations General appearance: alert, in no apparent distress, other (Physical well- developed, well-nourished adult male patient in no acute distress. Vital signs upon presentation are temperature 98.5F, pulse 72, respirations 18, blood pressure 125/89, pulse ox 99% on room air.) Eye exam: Present: normal appearance, PERRL, EOMI. Absent: scleral icterus, conjunctival injection, periorbital swelling ENT exam: Present: normal exam, normal oropharynx, mucous membranes moist Respiratory exam: Present: normal lung sounds bilaterally. Absent: respiratory distress, wheezes, rales, rhonchi, stridor Cardiovascular Exam: Present: regular rate, normal rhythm, normal heart sounds. Absent: systolic murmur, diastolic murmur, rubs, gallop, clicks GI/Abdominal exam: Present: soft, normal bowel sounds. Absent: distended, tenderness, guarding, rebound, rigid Neurological exam: Present: alert, oriented X3, CN II-XII intact, other (Strength in all 4 extremities is 5/5.) Psychiatric exam: Present: normal affect, normal mood Skin exam: Present: warm, dry, intact, normal color. Absent: rash Course Vital Signs 06/27/18 22:42 Temperature 98.5 F Pulse Rate 72 Respiratory 18 Rate Blood Pressure 125/89 O2 Sat by Pulse 99 Oximetry Medical Decision Making - Medical Decision Making 27-year-old male patient presents to the emergency department today for medical clearance for retirement. Patient reportedly had a 15-20 seconds seizure after being placed in handcuffs and put under arrest. Patient currently reports feeling well. Denies any physical symptoms at this time. Physical examination is unremarkable. He is neurologically intact with no focal deficits. Patient does have history of seizures, not currently taking medication. He will be discharged into police custody. He is instructed to follow-up with neurology as soon as possible. Return parameters discussed in detail. He verbalizes understanding and agrees with this plan. Disposition Clinical Impression: Simple seizure Disposition: HOME SELF-CARE Condition: Good Instructions (If sedation given, give patient instructions): Recurrent Seizures in Adults (ED) Additional Instructions: Follow up through primary care physician for recheck as instructed possible, discuss referral to neurology. Return to the emergency department immediately for any new, worsening, or concerning symptoms. Is patient prescribed a controlled substance at d/c from ED?: No Referrals: None,Stated [Primary Care Provider] - 1-2 days Time of Disposition: 23:17
== END 2018-06-27 23:22 | disposition home or self-care (01) ==
LOC: EC 22:40
DX: G40.909 Epilepsy, unspecified, not intractable, without status epilepticus (principal); F17.200 Nicotine dependence, unspecified, uncomplicated; Z86.14 Personal history of Methicillin resistant Staphylococcus aureus infection; Z98.890 Other specified postprocedural states
CPT/HCPCS: 99283